=== PATIENT | female | born 1965 | race Caucasian/White ===

== ENCOUNTER → 2016-08-17 | Outpatient (CLI) | payer OTHER ==
--- NOTE | 2016-08-17 11:17 | US ---
EXAMINATION TYPE: US thyroid st tissue head/neck DATE OF EXAM: 08/17/2016 9:57 AM COMPARISON: 02/06/2015 CLINICAL HISTORY: Goiter E04.2. GLAND SIZE: Right Lobe: 5.5 x 2.3 x 2.0 cm Overall Parenchyma: heterogenous Left Lobe: 5.7 x 1.8 x 2.2 cm Overall Parenchyma: heterogeneous Isthmus Thickness: 0.5 cm NODULES RIGHT: # of nodules measured on right: 3 1. 0.8 X 0.6 x 0.4 cm hypoechoic mixed nodule at the upper medial pole with well-defined margins. This nodule is wider than tall and shows no intranodular vascularity. Prior size: 0.6 x 0.4 x 0.6 cm 2. 0.9 X 0.8 x 0.6 cm hypoechoic mixed nodule at the upper pole with well-defined margins; present w ith microcalcifications. This nodule is wider than tall and shows intranodular vascularity. Prior size: 0.8 x 0.5 x 0.8 cm 3. 0.8 X 1.0 x 0.6 cm hypoechoic mixed nodule at the lower pole with well-defined margins. This nod ule is wider than tall and shows intranodular vascularity. Prior size: 0.7 x 0.7 x 0.8 cm LEFT: # of nodules measured on left: 2 1. 1.4 X 1.1 x 0.8 cm isoechoic mixed nodule at the mid pole with well-defined margins. This nodul e is wider than tall and shows intranodular vascularity (prior FNA on this nodule per patient HX). Prior size: 1.2 x 0.9 x 1.2 cm 2. 0.5 x 0.4 x 0.4cm isoechoic mixed/calcified nodule at the mid pole with poorly defined margins. T his nodule is as wide as is tall and shows no intranodular vascularity. Prior size: not seen previously ISTHMUS: # of nodules measured in the isthmus: 2 1. 1.0 X 0.7 x 0.5 cm hypoechoic complex cystic nodule at the lower right isthmus pole with well-de fined margins. This nodule is wider than tall and shows no intranodular vascularity. Prior size: no prior seen 2. 0.7 x 0.6 x 0.6cm isoechoic, mixed nodule, at the lower right lateral isthmus pole with well defi tom margins. This nodule is wider than tall and shows intranodular vascularity. Not seen on prior US IMPRESSION: 1. Multinodular thyroid changes. There are a couple nodules as measured above. There is slight incremental increase in size compared to the isthmus nodule and the left mid pole nod ule. 2. Correlate for thyroiditis
== END | disposition home or self-care (01) ==
LOC: RADUSWWP 09:17
PROVIDERS: ATTEND Internal Medicine Endocrinology, Diabetes & Metabolism
DX: E04.2 Nontoxic multinodular goiter (principal)
CPT/HCPCS: 36415; 76536; 84439; 84443; 84481

== ENCOUNTER 2019-12-15 15:44 | Emergency (ER) | payer OTHER ==
[2019-12-15 15:50] VITALS: TEMP 98.4
[2019-12-15] MEDS ORDERED: SODIUM CHLORIDE 0.9% 2,000 ML IV STA (16:10)
--- NOTE | 2019-12-15 16:16 | ED ---
Nausea/Vomiting/Diarrhea HPI - General Chief complaint: Nausea/Vomiting/Diarrhea Stated complaint: Diarrhea, dehydration Time Seen by Provider: 12/15/19 15:54 Source: patient, RN notes reviewed, old records reviewed Mode of arrival: ambulatory Limitations: no limitations - History of Present Illness Initial comments: Patient is a pleasant 54-year-old female who presents emergency department today for evaluation for concern for diarrhea for the past 5 days after starting Augmentin for a double ear infection by her primary care doctor last week. Lavern ent states that she has been feeling generally very fatigued and weak. She states that she has not had a history of C. diff in the past. She denies any localized abdominal pain or vomiting at this time. - Related Data Home Medications Medication Instructions Recorded Confirmed Lisinopril [Zestril] 10 mg PO DAILY 07/07/15 07/07/15 Previous Rx's Medication Instructions Recorded Meclizine [Antivert] 25 mg PO TID #30 tab 07/07/15 Allergies Allergy/AdvReac Type Severity Reaction Status Date / Time No Known Allergies Allergy Verified 12/15/19 15:50 Review of Systems ROS Statement: Those systems with pertinent positive or pertinent negative responses have been documented in the HPI. ROS Other: All systems not noted in ROS Statement are negative. Past Medical History Additional Past Medical History / Comment(s): back pain History of Any Multi-Drug Resistant Organisms: None Reported Past Surgical History: No Surgical Hx Reported Past Psychological History: Anxiety, Depression Smoking Status: Current every day smoker Past Alcohol Use History: Occasional Past Drug Use History: None Reported General Exam Limitations: no limitations General appearance: alert, in no apparent distress Head exam: Present: atraumatic, normocephalic, normal inspection Eye exam: Present: normal appearance, PERRL, EOMI. Absent: scleral icterus, conjunctival injection, periorbital swelling ENT exam: Present: normal exam, mucous membranes moist Neck exam: Present: normal inspection. Absent: tenderness, meningismus, lymphadenopathy Respiratory exam: Present: normal lung sounds bilaterally. Absent: respiratory distress, wheezes, rales, rhonchi, stridor Cardiovascular Exam: Present: regular rate, normal rhythm, normal heart sounds. Absent: systolic murmur, diastolic murmur, rubs, gallop, clicks Extremities exam: Present: normal inspection, full ROM, normal capillary refill. Absent: tenderness, pedal edema, joint swelling, calf tenderness Back exam: Present: normal inspection Neurological exam: Present: alert, oriented X3, CN II-XII intact Course Vital Signs 12/15/19 12/15/19 15:48 17:32 Temperature 98.4 F Pulse Rate 92 76 Respiratory 20 18 Rate Blood Pressure 140/81 133/85 O2 Sat by Pulse 99 98 Oximetry Medical Decision Making - Medical Decision Making 34 rolled female presents return today with 5 days of diarrhea after taking antibiotic for an ear infection. Ears appear normal this time and no sign of infection. She was on Augmentin for the past week. At this time patient's has no abdominal tenderness. She complains of general fatigue and diarrhea. No bloody stools. She has not had any bowel movements while in the emergency department. Her abdomen is soft and nontender. Labs were unremarkable reviewed and unremarkable. She does feel better after 2 L bolus. Discussed likely component of dehydration if she had abdominal pain or fevers to return to the ER for evaluation. We'll discharge the Patient with a prescription to have C. diff testing on outpatient stool sample. - Lab Data Result diagrams: 12/15/19 16:49 12/15/19 16:49 Lab Results 12/15/19 12/15/19 12/15/19 Range/Units 16:49 16:49 16:49 WBC 8.2 (3.8-10.6) k/uL RBC 4.29 (3.80-5.40) m/uL Hgb 14.2 (11.4-16.0) gm/dL Hct 41.7 (34.0-46.0) % MCV 97.2 (80.0-100.0) fL MCH 33.0 (25.0-35.0) pg MCHC 33.9 (31.0-37.0) g/dL RDW 12.2 (11.5-15.5) % Plt Count 281 (150-450) k/uL Neutrophils % 51 % Lymphocytes % 39 % Monocytes % 5 % Eosinophils % 3 % Basophils % 0 % Neutrophils # 4.2 (1.3-7.7) k/uL Lymphocytes # 3.2 (1.0-4.8) k/uL Monocytes # 0.4 (0-1.0) k/uL Eosinophils # 0.2 (0-0.7) k/uL Basophils # 0.0 (0-0.2) k/uL Sodium 138 (137-145) mmol/L Potassium 4.2 (3.5-5.1) mmol/L Chloride 105 (98-107) mmol/L Carbon Dioxide 22 (22-30) mmol/L Anion Gap 11 mmol/L BUN 10 (7-17) mg/dL Creatinine 0.59 (0.52-1.04) mg/dL Est GFR (CKD-EPI)AfAm >90 (>60 ml/min/1.73 sqM) Est GFR (CKD-EPI)NonAf >90 (>60 ml/min/1.73 sqM) Glucose 75 (74-99) mg/dL Plasma Lactic Acid Jeff (0.7-2.0) mmol/L Calcium 9.5 (8.4-10.2) mg/dL Magnesium 2.2 (1.6-2.3) mg/dL Total Bilirubin 0.6 (0.2-1.3) mg/dL AST 30 (14-36) U/L ALT 27 (4-34) U/L Alkaline Phosphatase 68 (38-126) U/L Total Protein 7.0 (6.3-8.2) g/dL Albumin 4.7 (3.5-5.0) g/dL Amylase 41 (30-110) U/L Lipase 221 (23-300) U/L Urine Color Colorless Urine Appearance Clear (Clear) Urine pH 5.5 (5.0-8.0) Ur Specific [place] 1.002 (1.001-1.035) Urine Protein Negative (Negative) Urine Glucose (UA) Negative (Negative) Urine Ketones Negative (Negative) Urine Blood Negative (Negative) Urine Nitrite Negative (Negative) Urine Bilirubin Negative (Negative) Urine Urobilinogen <2.0 (<2.0) mg/dL Ur Leukocyte Esterase Negative (Negative) 12/15/19 Range/Units 16:49 WBC (3.8-10.6) k/uL RBC (3.80-5.40) m/uL Hgb (11.4-16.0) gm/dL Hct (34.0-46.0) % MCV (80.0-100.0) fL MCH (25.0-35.0) pg MCHC (31.0-37.0) g/dL RDW (11.5-15.5) % Plt Count (150-450) k/uL Neutrophils % % Lymphocytes % % Monocytes % % Eosinophils % % Basophils % % Neutrophils # (1.3-7.7) k/uL Lymphocytes # (1.0-4.8) k/uL Monocytes # (0-1.0) k/uL Eosinophils # (0-0.7) k/uL Basophils # (0-0.2) k/uL Sodium (137-145) mmol/L Potassium (3.5-5.1) mmol/L Chloride (98-107) mmol/L Carbon Dioxide (22-30) mmol/L Anion Gap mmol/L BUN (7-17) mg/dL Creatinine (0.52-1.04) mg/dL Est GFR (CKD-EPI)AfAm (>60 ml/min/1.73 sqM) Est GFR (CKD-EPI)NonAf (>60 ml/min/1.73 sqM) Glucose (74-99) mg/dL Plasma Lactic Acid Jeff 1.9 (0.7-2.0) mmol/L Calcium (8.4-10.2) mg/dL Magnesium (1.6-2.3) mg/dL Total Bilirubin (0.2-1.3) mg/dL AST (14-36) U/L ALT (4-34) U/L Alkaline Phosphatase (38-126) U/L Total Protein (6.3-8.2) g/dL Albumin (3.5-5.0) g/dL Amylase (30-110) U/L Lipase (23-300) U/L Urine Color Urine Appearance (Clear) Urine pH (5.0-8.0) Ur Specific [place] (1.001-1.035) Urine Protein (Negative) Urine Glucose (UA) (Negative) Urine Ketones (Negative) Urine Blood (Negative) Urine Nitrite (Negative) Urine Bilirubin (Negative) Urine Urobilinogen (<2.0) mg/dL Ur Leukocyte Esterase (Negative) Disposition Clinical Impression: Diarrhea Disposition: HOME SELF-CARE Condition: Good Instructions (If sedation given, give patient instructions): Acute Diarrhea (ED) Additional Instructions: Recommended stop using the antibiotic. Patient should increase fluid intake and have a bland diet. Return if there is any fever or worsening abdominal pain. Patient can return stool sample for further testing. Is patient prescribed a controlled substance at d/c from ED?: No Referrals: Kavita Mae MD [Primary Care Provider] - 1-2 days Time of Disposition: 18:25
[2019-12-15 16:59] LABS: Basophils % (A) 0 %; Eosinophils # (A) 0.2 k/uL (0-0.7); Eosinophils % (A) 3 %; HCT 41.7 % (34.0-46.0); HGB 14.2 gm/dL (11.4-16.0); Lymphocytes # (A) 3.2 k/uL (1.0-4.8); Lymphocytes % (A) 39 %; MCHC 33.9 g/dL (31.0-37.0); MCV 97.2 fL (80.0-100.0); Mean Platelet Volume 7.3; Monocytes # (A) 0.4 k/uL (0-1.0); Monocytes % (A) 5 %; Neutrophils # (A) 4.2 k/uL (1.3-7.7); Neutrophils % (A) 51 %; Platelet Count 281 k/uL (150-450); RBC 4.29 m/uL (3.80-5.40); RDW 12.2 % (11.5-15.5); WBC 8.2 k/uL (3.8-10.6)
[2019-12-15 17:07] LABS: Appearance,Urine Clear (Clear); Bilirubin,Urine Negative (Negative); Blood,Urine Negative (Negative); Color,Urine Colorless; Glucose,Urine (UA) Negative (Negative); Ketones,Urine Negative (Negative); Leukocyte Esterase,Urine Negative (Negative); Nitrite,Urine Negative (Negative); PH, Urine 5.5 (5.0-8.0); Protein,Urine Negative (Negative); Specific Gravity,Urine 1.002 (1.001-1.035); Urobilinogen,Urine <2.0 mg/dL (<2.0)
[2019-12-15 17:09] LABS: ALT 27 U/L (4-34); AST 30 U/L (14-36); African American GFR (CKD) >90 (>60 ml/min/1.73 sqM); Albumin 4.7 g/dL (3.5-5.0); Alkaline Phosphatase 68 U/L (38-126); Amylase 41 U/L (30-110); Anion Gap 11 mmol/L; Blood Urea Nitrogen 10 mg/dL (7-17); Calcium 9.5 mg/dL (8.4-10.2); Carbon Dioxide 22 mmol/L (22-30); Chloride 105 mmol/L (98-107); Glucose 75 mg/dL (74-99); Magnesium 2.2 mg/dL (1.6-2.3); Non-African American GFR(CKD) >90 (>60 ml/min/1.73 sqM); Potassium 4.2 mmol/L (3.5-5.1); Sodium 138 mmol/L (137-145); Total Bilirubin 0.6 mg/dL (0.2-1.3)
[2019-12-15 17:33] VITALS: BP 133/85; PULSE 76; RESP 18
== END 2019-12-15 18:54 | disposition home or self-care (01) ==
LOC: EC 15:44
DX: R19.7 Diarrhea, unspecified (principal); R53.83 Other fatigue; F17.200 Nicotine dependence, unspecified, uncomplicated; Z79.899 Other long term (current) drug therapy
CPT/HCPCS: 36415; 80053; 81003; 82150; 83605; 83690; 83735; 85025; 96360; 96361; 99284

== ENCOUNTER → 2020-07-29 | Outpatient (CLI) | payer OTHER ==
--- NOTE | 2020-07-29 08:04 | CT ---
EXAMINATION TYPE: CT iac wo con DATE OF EXAM: 07/29/2020 COMPARISON: None HISTORY: Left ear cholesteatoma CT DLP: 150mGycm Automated exposure control for dose reduction was used. FINDINGS: The external auditory canals are patent bilaterally. The cochlea and the semicircular canals are sym metric and unremarkable. Vestibular aqueduct and internal carotid canal appear unremarkable. Mucosal thickening involving both maxillary, sphenoid, and ethmoid air cells compatible with chronic sinusitis. There is hypoaeration of the left mastoid air cells areas of soft tissue attenuation withi n the remaining air cells compatible with chronic mastoiditis. There is abnormal soft tissue involving superior margin of the left middle air encasing the middle ea r ossicles. The scutum is poorly defined. Differential diagnosis would include a cholesteatoma or gra nulation tissue, finding measures approximately 5 x 4 x 3 extending into the region of the mastoid ai r cells. Could not exclude a degree of deformity of the malleus and incus on the left. Temporomandibu lar joints are maintained bilaterally. IMPRESSION: 1. Abnormal soft tissue attenuation involving the left middle ear within involvement of the middle ai r ossicles. Differential diagnosis would include cholesteatoma. Correlate clinically. Asymmetric morp hology of the left middle ear ossicles also noted may be on the basis of chronic inflammatory changes correlate for left-sided hearing loss. 2. Chronic sinusitis. 3. Chronic left mastoiditis.
== END | disposition home or self-care (01) ==
LOC: RADCTMAIN 07:34
PROVIDERS: ATTEND Otolaryngology Otolaryngology/Facial Plastic Surgery
DX: H70.12 Chronic mastoiditis, left ear (principal)
CPT/HCPCS: 70480

== ENCOUNTER 2020-12-27 05:15 | Emergency (ER) | payer OTHER ==
[2020-12-27 05:22] VITALS: PULSE 85; RESP 19; TEMP 98.3
[2020-12-27] MEDS ORDERED: HYDROcodone/APAP 5-325MG 1 EACH TAB PO STA (05:45)
[2020-12-27] MEDS ORDERED: IBUPROFEN 600 MG TAB PO STA (05:45)
--- NOTE | 2020-12-27 05:49 | ED ---
Lower Extremity Injury HPI - General Chief Complaint: Extremity Injury, Lower Stated Complaint: LT foot injury Time Seen by Provider: 12/27/20 05:29 Source: patient Mode of arrival: wheelchair - History of Present Illness MD Complaint: ankle injury -: hour(s) Injury: Ankle: Left Type of Injury: inversion Place: home Severity: moderate Improves With: nothing Worsens With: weight bearing Context: fall Associated Symptoms: swelling - Related Data Home Medications Medication Instructions Recorded Confirmed lisinopriL [Zestril] 10 mg PO DAILY 07/07/15 07/07/15 Previous Rx's Medication Instructions Recorded Meclizine [Antivert] 25 mg PO TID #30 tab 07/07/15 Ibuprofen [Motrin] 600 mg PO Q8HR PRN #20 tab 12/27/20 Allergies Allergy/AdvReac Type Severity Reaction Status Date / Time No Known Allergies Allergy Verified 12/27/20 05:22 Review of Systems ROS Statement: Those systems with pertinent positive or pertinent negative responses have been documented in the HPI. ROS Other: All systems not noted in ROS Statement are negative. Constitutional: Denies: weakness Musculoskeletal: Reports: as per HPI, joint swelling, arthralgia Skin: Denies: lesions Neurological: Denies: weakness, numbness Past Medical History Additional Past Medical History / Comment(s): back pain History of Any Multi-Drug Resistant Organisms: None Reported Past Surgical History: Ear Surgery Past Psychological History: Anxiety, Depression Smoking Status: Current every day smoker Past Alcohol Use History: Occasional Past Drug Use History: None Reported General Exam General appearance: alert, in no apparent distress Head exam: Present: atraumatic, normocephalic Left Hip exam: Present: normal inspection Upper Leg exam: Present: normal inspection Knee exam: Present: normal inspection, full ROM. Absent: tenderness Lower Leg exam: Present: normal inspection, full ROM. Absent: tenderness, swelling Ankle exam: Present: tenderness (Lateral malleolus), swelling. Absent: normal inspection, abrasion, laceration, ecchymosis, deformity, crepitus, dislocation Foot/Toe exam: Present: normal inspection, full ROM. Absent: tenderness, swelling, abrasion, laceration, ecchymosis, deformity, crepitus, dislocation, erythema, amputation, puncture wound, foreign body, calcaneal tenderness, tend erness at base of 5th metatarsal Neurovascular tendon exam: Present: no vascular compromise. Absent: pulse deficit, abnormal cap refill, motor deficit, sensory deficit, tendon deficit Neurological exam: Absent: motor sensory deficit Skin exam: Present: warm (Throughout left foot), dry, intact, normal color. Absent: rash Course Vital Signs 12/27/20 05:20 Temperature 98.3 F Pulse Rate 85 Respiratory 19 Rate Blood Pressure 124/80 O2 Sat by Pulse 98 Oximetry Disposition Clinical Impression: Sprain and strain of ankle Disposition: HOME SELF-CARE Condition: Good Instructions (If sedation given, give patient instructions): Ankle Sprain (ED) Prescriptions: Ibuprofen [Motrin] 600 mg PO Q8HR PRN #20 tab PRN Reason: Pain Is patient prescribed a controlled substance at d/c from ED?: No Referrals: Kavita Mae MD [Primary Care Provider] - 1-2 days
[2020-12-27] MEDS ORDERED: ACET/COD 300 MG/30 MG STARTER PACK 6 TAB BTL PO STA (06:30)
--- NOTE | 2020-12-27 06:49 | XR ---
EXAMINATION TYPE: XR ankle complete LT DATE OF EXAM: 12/27/2020 COMPARISON: NONE HISTORY: Ankle pain TECHNIQUE: 3 views FINDINGS: Ankle mortise is anatomic. There is soft tissue swelling over the lateral malleolus. I see no fracture nor dislocation. IMPRESSION: Soft tissue swelling. No fracture.
[2020-12-27 06:55] VITALS: BP 136/87
== END 2020-12-27 06:55 | disposition home or self-care (01) ==
LOC: EC 05:15
DX: S96.912A Strain of unspecified muscle and tendon at ankle and foot level, left foot, initial encounter (principal); F17.200 Nicotine dependence, unspecified, uncomplicated; F32.9 Major depressive disorder, single episode, unspecified; X50.9XXA Other and unspecified overexertion or strenuous movements or postures, initial encounter
CPT/HCPCS: 99283

== ENCOUNTER 2021-03-16 07:05 | Emergency (ER) | payer OTHER ==
[2021-03-16 07:11] VITALS: RESP 16; TEMP 97.9
[2021-03-16] MEDS ORDERED: SODIUM CHLORIDE 0.9% 1,000 ML IV STA (07:25)
[2021-03-16] MEDS ORDERED: DICYCLOMINE 10 MG/ML 2 ML AMP IM STA (07:26)
--- NOTE | 2021-03-16 07:45 | ED ---
General Adult HPI - General Chief complaint: Abdominal Pain Stated complaint: Abd Pain Time Seen by Provider: 03/16/21 07:13 Source: patient, RN notes reviewed Mode of arrival: ambulatory Limitations: no limitations - History of Present Illness Initial comments: Patient's a 55-year-old female presented to the emergency room today with a chief complaint of abdominal discomfort along with diarrhea over the last for 5 days. Patient does admit that approximately 2 weeks ago she was treated for bronchitis with antibiotics. She does not remember the name of the antibiotic. Patient states that some cramping over the last few days he's had increased di arrhea. Patient denies any signs of blood in the stool. She denies any nausea or vomiting. Patient states she's had similar symptoms in the past. Denies any history of C. diff. Patient denies any recent fever, chills, shortness of breath, chest pain, back pain, nausea or vomiting, numbness or tingling, headaches or visual changes, or any other complaints. - Related Data Home Medications Medication Instructions Recorded Confirmed FLUoxetine HCL [PROzac] 20 mg PO DAILY 03/16/21 03/16/21 Loperamide HCl [Imodium A-D] 2 mg PO ONCE PRN 03/16/21 03/16/21 Losartan [Cozaar] 50 mg PO DAILY 03/16/21 03/16/21 Previous Rx's Medication Instructions Recorded Dicyclomine [Bentyl] 20 mg PO QID #20 tablet 03/16/21 Allergies Allergy/AdvReac Type Severity Reaction Status Date / Time Penicillins AdvReac Nausea & Verified 03/16/21 08:22 Vomiting & Diarrhea Review of Systems ROS Statement: Those systems with pertinent positive or pertinent negative responses have been documented in the HPI. ROS Other: All systems not noted in ROS Statement are negative. Past Medical History Additional Past Medical History / Comment(s): back pain History of Any Multi-Drug Resistant Organisms: None Reported Past Surgical History: Ear Surgery Past Psychological History: Anxiety, Depression Smoking Status: Current every day smoker Past Alcohol Use History: Occasional Past Drug Use History: None Reported General Exam - General Exam Comments Initial Comments: General: The patient is awake and alert, in no distress, and does not appear acutely ill. Eye: extra-ocular movements are intact. No nystagmus. There is normal conjunctiva bilaterally. No signs of icterus. Ears, nose, mouth and throat: There are moist mucous membranes and no oral lesions. Neck: The neck is supple, there is no tenderness or JVD. Respiratory: respirations are non-labored, breath sounds are equal. No wheezes Gastrointestinal: Abdomen soft nontender. No rebound, guarding or CVA tenderness. Musculoskeletal: Normal ROM, no tenderness. Strength 5/5. Sensation intact. Neurological: A&O x 3. CN II-XII intact, There are no obvious motor or sensory deficits. Coordination appears grossly intact. Speech is normal. Skin: Skin is warm and dry and no rashes or lesions are noted. Psychiatric: Cooperative, appropriate mood & affect, normal judgment. Limitations: no limitations Course Vital Signs 03/16/21 07:09 Temperature 97.9 F Pulse Rate 76 Respiratory 16 Rate Blood Pressure 146/83 O2 Sat by Pulse 98 Oximetry Medical Decision Making - Medical Decision Making Patient reexamined at this time she is resting covered. Does admit to feeling better here in emergency room. Was unable to give a stool sample. Was discussed about concern if symptoms increase that she should have stool studies. At this time she is doing well and vitals are stable. Will be discharged home with prescription for Bentyl. Advised to follow family physician. Advised return if symptoms increase or worsen. Patient states understanding and is in agreement. - Lab Data Result diagrams: 03/16/21 08:13 03/16/21 08:13 Lab Results 03/16/21 03/16/21 03/16/21 Range/Units 08:13 08:13 08:13 WBC 7.1 (3.8-10.6) k/uL RBC 4.12 (3.80-5.40) m/uL Hgb 13.4 (11.4-16.0) gm/dL Hct 40.6 (34.0-46.0) % MCV 98.6 (80.0-100.0) fL MCH 32.6 (25.0-35.0) pg MCHC 33.0 (31.0-37.0) g/dL RDW 12.1 (11.5-15.5) % Plt Count 285 (150-450) k/uL MPV 7.5 Neutrophils % 67 % Lymphocytes % 22 % Monocytes % 6 % Eosinophils % 3 % Basophils % 0 % Neutrophils # 4.7 (1.3-7.7) k/uL Lymphocytes # 1.5 (1.0-4.8) k/uL Monocytes # 0.5 (0-1.0) k/uL Eosinophils # 0.2 (0-0.7) k/uL Basophils # 0.0 (0-0.2) k/uL Sodium (137-145) mmol/L Potassium (3.5-5.1) mmol/L Chloride (98-107) mmol/L Carbon Dioxide (22-30) mmol/L Anion Gap mmol/L BUN (7-17) mg/dL Creatinine (0.52-1.04) mg/dL Est GFR (CKD-EPI)AfAm (>60 ml/min/1.73 sqM) Est GFR (CKD-EPI)NonAf (>60 ml/min/1.73 sqM) Glucose (74-99) mg/dL Calcium (8.4-10.2) mg/dL Total Bilirubin (0.2-1.3) mg/dL AST (14-36) U/L ALT (4-34) U/L Alkaline Phosphatase (38-126) U/L Total Protein (6.3-8.2) g/dL Albumin (3.5-5.0) g/dL Lipase (23-300) U/L Urine Color Yellow Urine Appearance Cloudy H (Clear) Urine pH 5.5 (5.0-8.0) Ur Specific [place] 1.012 (1.001-1.035) Urine Protein Negative (Negative) Urine Glucose (UA) Negative (Negative) Urine Ketones Negative (Negative) Urine Blood Negative (Negative) Urine Nitrite Negative (Negative) Urine Bilirubin Negative (Negative) Urine Urobilinogen <2.0 (<2.0) mg/dL Ur Leukocyte Esterase Trace H (Negative) Urine RBC <1 (0-5) /hpf Urine WBC 2 (0-5) /hpf Ur Squamous Epith Cells 12 H (0-4) /hpf Urine Bacteria Rare H (None) /hpf Urine Mucus Occasional H (None) /hpf Urine HCG, Qual Not Detected (Not Detectd) 03/16/21 Range/Units 08:13 WBC (3.8-10.6) k/uL RBC (3.80-5.40) m/uL Hgb (11.4-16.0) gm/dL Hct (34.0-46.0) % MCV (80.0-100.0) fL MCH (25.0-35.0) pg MCHC (31.0-37.0) g/dL RDW (11.5-15.5) % Plt Count (150-450) k/uL MPV Neutrophils % % Lymphocytes % % Monocytes % % Eosinophils % % Basophils % % Neutrophils # (1.3-7.7) k/uL Lymphocytes # (1.0-4.8) k/uL Monocytes # (0-1.0) k/uL Eosinophils # (0-0.7) k/uL Basophils # (0-0.2) k/uL Sodium 137 (137-145) mmol/L Potassium 4.0 (3.5-5.1) mmol/L Chloride 108 H (98-107) mmol/L Carbon Dioxide 23 (22-30) mmol/L Anion Gap 6 mmol/L BUN 6 L (7-17) mg/dL Creatinine 0.54 (0.52-1.04) mg/dL Est GFR (CKD-EPI)AfAm >90 (>60 ml/min/1.73 sqM) Est GFR (CKD-EPI)NonAf >90 (>60 ml/min/1.73 sqM) Glucose 111 H (74-99) mg/dL Calcium 9.2 (8.4-10.2) mg/dL Total Bilirubin 0.7 (0.2-1.3) mg/dL AST 38 H (14-36) U/L ALT 30 (4-34) U/L Alkaline Phosphatase 85 (38-126) U/L Total Protein 6.1 L (6.3-8.2) g/dL Albumin 3.8 (3.5-5.0) g/dL Lipase 61 (23-300) U/L Urine Color Urine Appearance (Clear) Urine pH (5.0-8.0) Ur Specific [place] (1.001-1.035) Urine Protein (Negative) Urine Glucose (UA) (Negative) Urine Ketones (Negative) Urine Blood (Negative) Urine Nitrite (Negative) Urine Bilirubin (Negative) Urine Urobilinogen (<2.0) mg/dL Ur Leukocyte Esterase (Negative) Urine RBC (0-5) /hpf Urine WBC (0-5) /hpf Ur Squamous Epith Cells (0-4) /hpf Urine Bacteria (None) /hpf Urine Mucus (None) /hpf Urine HCG, Qual (Not Detectd) Disposition Clinical Impression: Abdominal pain, Acute diarrhea Disposition: HOME SELF-CARE Condition: Good Instructions (If sedation given, give patient instructions): Abdominal Pain (ED) Additional Instructions: Please use medication as discussed. Please follow-up with family doctor in the next 2 days of symptoms have not improved. Please return to emergency room if the symptoms increase or worsen or for any other concerns. Prescriptions: Dicyclomine [Bentyl] 20 mg PO QID #20 tablet Is patient prescribed a controlled substance at d/c from ED?: No Referrals: Kavita Mae MD [Primary Care Provider] - 1-2 days Time of Disposition: 10:20
[2021-03-16 08:28] LABS: Basophils % (A) 0 %; Eosinophils # (A) 0.2 k/uL (0-0.7); Eosinophils % (A) 3 %; HCT 40.6 % (34.0-46.0); HGB 13.4 gm/dL (11.4-16.0); Lymphocytes # (A) 1.5 k/uL (1.0-4.8); Lymphocytes % (A) 22 %; MCH 32.6 pg (25.0-35.0); MCV 98.6 fL (80.0-100.0); Mean Platelet Volume 7.5; Monocytes # (A) 0.5 k/uL (0-1.0); Monocytes % (A) 6 %; Neutrophils # (A) 4.7 k/uL (1.3-7.7); Neutrophils % (A) 67 %; Platelet Count 285 k/uL (150-450); RBC 4.12 m/uL (3.80-5.40); RDW 12.1 % (11.5-15.5); WBC 7.1 k/uL (3.8-10.6)
[2021-03-16 08:50] LABS: Appearance,Urine Cloudy (Clear); Bacteria,Urine Rare /hpf; Bilirubin,Urine Negative (Negative); Blood,Urine Negative (Negative); Color,Urine Yellow; Glucose,Urine (UA) Negative (Negative); Ketones,Urine Negative (Negative); Leukocyte Esterase,Urine Trace (Negative); Mucus,Urine Occasional /hpf; Nitrite,Urine Negative (Negative); PH, Urine 5.5 (5.0-8.0); Protein,Urine Negative (Negative); RBC,Urine <1 /hpf (0-5); Specific Gravity,Urine 1.012 (1.001-1.035); Squamous Epithelial Cell,Urine 12 /hpf (0-4); Urobilinogen,Urine <2.0 mg/dL (<2.0); WBC,Urine 2 /hpf (0-5)
[2021-03-16 08:51] LABS: ALT 30 U/L (4-34); AST 38 U/L (14-36); African American GFR (CKD) >90 (>60 ml/min/1.73 sqM); Albumin 3.8 g/dL (3.5-5.0); Alkaline Phosphatase 85 U/L (38-126); Anion Gap 6 mmol/L; Blood Urea Nitrogen 6 mg/dL (7-17); Calcium 9.2 mg/dL (8.4-10.2); Carbon Dioxide 23 mmol/L (22-30); Chloride 108 mmol/L (98-107); Glucose 111 mg/dL (74-99); Lipase 61 U/L (23-300); Non-African American GFR(CKD) >90 (>60 ml/min/1.73 sqM); Sodium 137 mmol/L (137-145); Total Bilirubin 0.7 mg/dL (0.2-1.3); Total Protein 6.1 g/dL (6.3-8.2)
[2021-03-16 10:34] VITALS: BP 144/89; PULSE 68
== END 2021-03-16 10:34 | disposition home or self-care (01) ==
LOC: EC 07:05
DX: R19.7 Diarrhea, unspecified (principal); F41.9 Anxiety disorder, unspecified; F32.9 Major depressive disorder, single episode, unspecified; F17.200 Nicotine dependence, unspecified, uncomplicated; Z72.89 Other problems related to lifestyle
CPT/HCPCS: 36415; 80053; 83690; 85025; 81001; 81025; 87324; 87045; 87046; 99284; 96360; 96372; J0500

== ENCOUNTER → 2022-10-26 | Outpatient (CLI) | payer OTHER ==
--- NOTE | 2022-10-27 08:21 | MR ---
EXAMINATION TYPE: MR lumbar spine wo con DATE OF EXAM: 10/26/2022 8:10 AM COMPARISON: 01/28/2014 HISTORY: Lower back pain, LLE radiculopathy. Multiplanar, MultiSpin echo imaging of the lumbar spine was performed. L1-L2: Mild disc desiccation with posterior disc bulge. Mild effacement ventral thecal sac. No eviden ce for herniation or protrusion. No central stenosis or foraminal encroachment. L2-L3: Mild disc desiccation with posterior disc bulge which effaces the ventral thecal sac. Hypertro phy of the ligamentum flavum as well as facet joint arthropathy result in borderline to mild central stenosis. Mild bilateral neural foraminal encroachment. L3-L4: Mild disc desiccation with posterior disc bulge which effaces the ventral thecal sac. Hypertro phy of the ligamentum flavum as well as facet joint arthropathy result in borderline to mild central stenosis. Mild bilateral neural foraminal encroachment. L4-L5: Moderate to severe disc desiccation with moderate posterior disc bulge. Hypertrophy ligamentum flavum and hypertrophic change of the facet joints result in moderate central stenosis. Bilateral ne ural foraminal encroachment. L5-S1: Moderate disc desiccation. Previously noted right paracentral disc herniation appears to have resolved. There is posterior disc bulge noted with annular tear. Hard disc is seen paracentrally and to the left resulting in left lateral recess stenosis and left foraminal encroachment. Lumbar segments are intact. No paraspinal masses are identified. Conus medullaris has a normal appe arance. Small incidental left renal cyst. IMPRESSION: 1. Multilevel degenerative disc disease with multilevel central stenosis and foraminal encroachment w ith progression since prior examination.
== END | disposition home or self-care (01) ==
LOC: RADMRIMAIN 07:18
PROVIDERS: ATTEND Nurse Practitioner Family
DX: M47.26 Other spondylosis with radiculopathy, lumbar region (principal); M51.16 Intervertebral disc disorders with radiculopathy, lumbar region; M99.73 Connective tissue and disc stenosis of intervertebral foramina of lumbar region
CPT/HCPCS: 72148

== ENCOUNTER → 2022-11-03 | Outpatient (CLI) | payer OTHER ==
[2022-11-03 09:43] VITALS: BP 122/79; PULSE 83; RESP 18; TEMP 98.2
--- NOTE | 2022-11-03 14:24 | P.PAINPG ---
PQRS Measure Charge Sheet Comment: HISTORY OF PRESENT ILLNESS: 57 yr old female as a referral from [facility] presents today w severe and chronic LBP x 15 yrs secondary to DDD, spondylosis and facet arthropathy without myelopathy for evaluation. Pt states pain level is provoked at 9/10 in intensity, constant, localized in the lower lumbar spine, sharp in character w shooting pain towards the LLE and foot. Pain is provoked by lifting, bending, activity. Pain is alleviated by heat, medications (Naproxen, Ibu), topical, PT in 2017, massages by her best friend at home as needed, hot baths, repositioning and rest. PMH: HTN, MDD/ Anxiety PSH: Ear Surgery SH: Daily tobacco use, Occasional ETOH use, No illicit drug use FH: Noncontributory All: PCN Meds: See list REVIEW OF ORGAN SYSTEMS: CONSTITUTIONAL: No fevers or chills. No recent weight loss. NEUROLOGICAL: + numbness and tingling along the distal extremities. No seizure disorders or headaches. MUSCULOSKELETAL: + pain PSYCHIATRIC: Denies current depression or suicidal thoughts. Physical Examinations : Constitutional : Cooperative , not in acute distress . Neurologic : Cranial nerve II to XII intact. No focal neurological deficits. Psychiatric : alert & oriented x 3. Matching mood & appropriate affect. Judgment & insight intact. Musculoskeletal : Cervical Spine Motor strength in the deltoid and biceps: Normal right side. Normal Left side Motor strength biceps and the wrist extensors: Normal right side . Normal left side Motor strength in the triceps muscle: Normal right side. Normal left side Deep tendon reflexes: Normal at the biceps. Normal at Brachioradialis. Normal at triceps Vertebral body tenderness to deep palpation over Cervical facet loading test: positive bilaterally Spurling test: positive bilaterally Neck distraction test: positive bilaterally Mariel sign: positive bilaterally Lumbar spine Motor strength lower extremities ,thigh and legs 5/5 Right side , 5/5 Left side Deep tendon reflexes : Normal Knee Jerk. Normal Ankle Jerk Vertebral body tenderness over L5 Savage Test positive Lumbar facet Loading Test: positive Right / positive Left Range of motion of the lumbar spine Flexion 30 degrees, extension 10 degrees Straight Leg Raise test: Left/ Right positive at degree Tae test: positive right / positive left. Severe tenderness over the Sacroiliac joint on the Right / Left sides Gaenslen test: positive bilaterally Seated flexion test: positive b ilaterally. Sacral spine : Severe tenderness over the Sacroiliac joint: right side / left side Range of motion: Flexion of the lumbar spine <60 degrees Range of motion: Extension of the lumbar spine <20 degrees Gaenslen's Test positive Amadou's Test positive Tae test: positive right side / left side Thigh Thrust Test Sacral Thrust Test Imaging: MRI noncontrast of the lumbar spine from 10/26/22 reviewed Assessment/ Plan : Lumbar disc bulges, Lumbar DDD Recommendation of PT x 6 wks re: M51.36. May follow up in 6 wks for a re evaluation. All questions answered. I have spent greater than 30 minutes on patient care today. Dr Knight was available by phone for the evaluation of this patient. The time was used to review the medical records including relevant urine studies and Prescription history (MAPs), review of the available imaging, evaluation and examination of the patient, coordination of care with the medical staff and if applicable referring physicians, as well as creation of the medical record PQRS Narrative: Smoking Status Current every day smoker Home Medications: Ambulatory Orders Dicyclomine [Bentyl] 20 mg PO QID #20 tablet 03/16/21 FLUoxetine HCL [PROzac] 20 mg PO DAILY 03/16/21 Loperamide HCl [Imodium A-D] 2 mg PO ONCE PRN 03/16/21 Losartan [Cozaar] 50 mg PO DAILY 03/16/21 Controlled Substance Measures - Controlled Substance Measures Is patient prescribed a controlled substance at discharge?: No
== END ==
LOC: PNWHC3 08:29
PROVIDERS: ATTEND Specialist
DX: M47.26 Other spondylosis with radiculopathy, lumbar region (principal); M51.16 Intervertebral disc disorders with radiculopathy, lumbar region; F17.200 Nicotine dependence, unspecified, uncomplicated; I10 Essential (primary) hypertension; F32.9 Major depressive disorder, single episode, unspecified; F41.9 Anxiety disorder, unspecified; Z88.0 Allergy status to penicillin
CPT/HCPCS: 99211

== ENCOUNTER 2022-12-10 05:54 | Emergency (ER) | payer OTHER ==
[2022-12-10 05:59] VITALS: BP 120/70; PULSE 87; RESP 16; TEMP 98.7
[2022-12-10] MEDS ORDERED: DEXAMETHASONE SOD PHOSPHATE 10 MG/ML 1 ML VIAL IM STA (06:13)
[2022-12-10] MEDS ORDERED: ACET/COD 300 MG/30 MG STARTER PACK 6 TAB BTL PO STA (06:17)
--- NOTE | 2022-12-10 06:26 | ED ---
Back Pain HPI - General Chief Complaint: Back Pain/Injury Stated Complaint: Left side pain Time Seen by Provider: 12/10/22 06:03 Source: patient, RN notes reviewed, old records reviewed Limitations: no limitations - History of Present Illness Initial Comments: 57-year-old female presents to the emergency room ambulatory with complaints of low back pain radiating down her left leg. has a history of the same and recently had an MRI. She is scheduled to see orthopedics next week for follow- up after having her MRI. has had relief with steroids in the past. Has been taking Naprosyn and Flexeril at home with no relief. Having difficulty sleeping at night due to pain. Denies any trauma, no fevers, no bowel or bladder incontinence, no history of cancer. MD Complaint: back pain -: week(s) Similar Symptoms Previously: Yes Severity scale (1-10): 9 Consistency: constant Improves With: none Associated Symptoms: denies other symptoms Treatments Prior to Arrival: NSAIDS (Naproxen), other (flexeril) - Related Data Home Medications Medication Instructions Recorded Confirmed FLUoxetine HCL [PROzac] 20 mg PO DAILY 03/16/21 03/16/21 Loperamide HCl [Imodium A-D] 2 mg PO ONCE PRN 03/16/21 03/16/21 Losartan [Cozaar] 50 mg PO DAILY 03/16/21 03/16/21 Previous Rx's Medication Instructions Recorded Dicyclomine [Bentyl] 20 mg PO QID #20 tablet 03/16/21 Lidocaine 5% Patch [Lidoderm] 1 patch TOPICAL DAILY 14 Days #14 12/10/22 patch predniSONE [Deltasone] 20 mg PO BID 5 Days #10 tab 12/10/22 Allergies Allergy/AdvReac Type Severity Reaction Status Date / Time Penicillins AdvReac Nausea & Verified 03/16/21 08:22 Vomiting & Diarrhea Review of Systems ROS Statement: Those systems with pertinent positive or pertinent negative responses have been documented in the HPI. ROS Other: All systems not noted in ROS Statement are negative. Past Medical History Additional Past Medical History / Comment(s): back pain History of Any Multi-Drug Resistant Organisms: None Reported Past Surgical History: Ear Surgery Past Psychological History: Anxiety, Depression Smoking Status: Current every day smoker Past Alcohol Use History: Occasional Past Drug Use History: None Reported General Exam Limitations: no limitations General appearance: alert Head exam: Present: atraumatic Eye exam: Present: normal appearance Neck exam: Absent: meningismus Respiratory exam: Absent: respiratory distress, accessory muscle use Cardiovascular Exam: Present: regular rate Extremities exam: Present: normal capillary refill. Absent: pedal edema Back exam: Present: tenderness (left sciatic notch). Absent: CVA tenderness (R), CVA tenderness (L), paraspinal tenderness, vertebral tenderness, rash noted Expanded Back exam: Absent: saddle anesthesia Back exam: Sciatic Notch Tenderness: Left Neurological exam: Present: alert, oriented X3, normal gait Psychiatric exam: Present: normal affect, normal mood Skin exam: Present: warm, dry, normal color. Absent: cyanosis, diaphoretic, petechiae, pallor Course Vital Signs 12/10/22 05:55 Temperature 98.7 F Pulse Rate 87 Respiratory 16 Rate Blood Pressure 120/70 O2 Sat by Pulse 100 Oximetry Medical Decision Making - Medical Decision Making Was pt. sent in by a medical professional or institution (, PA, ICU REGISTERED NURSE, urgent care, hospital, or [place] health care facility...) When possible be specific @ -No Did you speak to anyone other than the patient for history (EMS, parent, family, police, friend...)? What history was obtained from this source @ -No Did you review nursing and triage notes (agree or disagree)? Why? @ -I reviewed and agree with nursing and triage notes Were old charts reviewed (outside hosp., previous admission, EMS record, old EKG, old radiological studies, urgent care reports/EKG's, [place] health care facility records)? Report findings @ -yes MRI report 10/26/22 Differential Diagnosis (chest pain, altered mental status, abdominal pain women, abdominal pain men, vaginal bleeding, weakness, fever, dyspnea, syncope, headache, dizziness, GI bleed, back pain, seizure, CVA, palpatations, mental health, musculoskeletal)? @ -Differential Back Pain: Strain, zoster, cauda equina syndrome, epidural abscess, vertebral osteomyelitis, discitis, fracture, subluxation, disc herniation, DJD, spinal stenosis, dissection, AAA, pancreatitis, peptic ulcer disease, pyelonephritis, kidney stone, this is not meant to be an all-inclusive list. EKG interpreted by me (3pts min.). @ -n/a X-rays interpreted by me (1pt min.). @ -None done CT interpreted by me (1pt min.). @ -None done U/S interpreted by me (1pt. min.). @ -None done What testing was considered but not performed or refused? (CT, X-rays, U/S, labs)? Why? @ -X-ray was considered however patient had an MRI in October, denies any trauma or new symptoms. What meds were considered but not given or refused? Why? @ -None Did you discuss the management of the patient with other professionals (professionals i.e. DrJelena, PA, ICU REGISTERED NURSE, lab, RT, psych nurse, director social, quality director, teacher, project control officer, rifle case repairer)? Give summary @ -No Was smoking cessation discussed for >3mins.? @ -No Was critical care preformed (if so, how long)? @ -No Were there social determinants of health that impacted care today? How? (Homelessness, low income, unemployed, alcoholism, drug addiction, transportation, low edu. Level, literacy, decrease access to med. care, prison, rehab)? @ -No Was there de-escalation of care discussed even if they declined (Discuss DNR or withdrawal of care, Hospice)? DNR status @ -No What co-morbidities impacted this encounter? (DM, HTN, Smoking, COPD, CAD, Cancer, CVA, ARF, Chemo, Hep., AIDS, mental health diagnosis, sleep apnea, morbid obesity)? @ -Chronic low back pain with degenerative disc disease, anxiety, depression, smoker Was patient admitted / discharged? Hospital course, mention meds given and route, prescriptions, significant lab abnormalities, going to OR and other pertinent info. @ -Discharged 57-year-old female presents to the emergency room ambulatory with complaints of low back pain radiating down her left leg. has a history of the same and recently had an MRI. She is scheduled to see orthopedics next week for follow- up after having her MRI. has had relief with steroids in the past. Has been taking Naprosyn and Flexeril at home with no relief. Having difficulty sleeping at night due to pain. Denies any trauma, no fevers, no bowel or bladder incontinence, no history of cancer. Report of MRI completed on 10/26/2022 of lumbar spine without contrast by orthopedics Sav[facility] Norman ICU REGISTERED NURSE was reviewed. Impression was multilevel degenerative disc disease with multilevel central stenosis and foraminal encroachment with progression since prior exam in January 2014. On physical exam patient is able to ambulate in the room with a steady gait. Good flexion. No saddle anesthesia. She describes the pain as shooting down left leg and left lateral side of her foot. States has had improvement after steroids in the past. Patient was given a shot of Decadron and a Lidoderm patch. She was prescribed a 5 day course of prednisone. Directed not to take her Naprosyn while taking the prednisone. She is instructed to follow-up with orthopedics as scheduled on December 15. Return to the emergency room with a new concerning symptoms. She is agreeable to this plan of care. Discharged home with family ambulatory. Case discussed with Dr. Cowart. Undiagnosed new problem with uncertain prognosis? @ -No Drug Therapy requiring intensive monitoring for toxicity (Heparin, Nitro, Insulin, Cardizem)? @ -No Were any procedures done? @ -No Diagnosis/symptom? @ -Chronic low back pain with left-sided sciatica Acute, or Chronic, or Acute on Chronic? @ -Acute on chronic Uncomplicated (without systemic symptoms) or Complicated (systemic symptoms)? @ -Uncomplicated Side effects of treatment? @ -No Exacerbation, Progression, or Severe Exacerbation? @ -No Poses a threat to life or bodily function? How? (Chest pain, USA, VT, pneumonia, PE, COPD, DKA, ARF, appy, cholecystitis, CVA, Diverticulitis, Homicidal, Suicidal, threat to staff... and all critical care pts) @ -No Disposition Clinical Impression: Chronic low back pain with left-sided sciatica Disposition: HOME SELF-CARE Condition: Good Instructions (If sedation given, give patient instructions): Sciatica (ED), Chronic Back Pain (DC), Lower Back Exercises (ED) Additional Instructions: Take steroids as prescribed and do not take Naprosyn while taking steroids. You can continue the Flexeril and use heat and/or topical pain relievers. You can use Tylenol #3 to help you sleep at night but do not use muscle relaxers and Tylenol [address] or operate heavy machinery when taking these medications. Follow-up with orthopedics as scheduled next week. Return to the emergency room with a number concerning symptoms. Prescriptions: predniSONE [Deltasone] 20 mg PO BID 5 Days #10 tab Lidocaine 5% Patch [Lidoderm] 1 patch TOPICAL DAILY 14 Days #14 patch Is patient prescribed a controlled substance at d/c from ED?: No Referrals: Bibiana Márquez MD [Primary Care Provider] - 1-2 days Time of Disposition: 06:23
[2022-12-10] MEDS ORDERED: LIDOCAINE 5% PATCH TOPICAL SCH (09:00)
== END 2022-12-10 06:36 | disposition home or self-care (01) ==
LOC: EC 05:54
DX: G89.29 Other chronic pain (principal); M54.32 Sciatica, left side; F17.200 Nicotine dependence, unspecified, uncomplicated; Z86.59 Personal history of other mental and behavioral disorders; Z88.0 Allergy status to penicillin
CPT/HCPCS: 99283; 96372; J1100

== ENCOUNTER 2023-04-13 06:39 | Day surgery (SDC) | payer OTHER ==
[2023-04-13] MEDS ORDERED: LACTATED RINGERS 1,000 ML IV SCH (06:50)
[2023-04-13] MEDS ORDERED: methylPREDNISolone ACETATE 80 MG/ML 1 ML VIAL ONE (07:18)
[2023-04-13] MEDS ORDERED: IOPAMIDOL M200 10 ML VIAL ONE (07:18)
--- NOTE | 2023-04-13 07:24 | P.PCN ---
Date of Procedure: 04/13/23 Procedure(s) Performed: PREOPERATIVE DIAGNOSIS: 1- Lumbar Degenerative Disc Diseases 2-Lumbar spondylosis with Facet arthropathy without myelopathy. POSTOPERATIVE DIAGNOSIS: 1-lumbar degenerative disc disease. 2-lumbar spondylosis with facet arthropathy without myelopathy. PROCEDURE 1. Lumbar epidural steroid injection under fluoroscopic guidance at the L4-5 level. (Fluoroscopy imaging was available in radiology department) 2. Lumbar epidurogram. ANESTHESIA: Lidocaine 1% 3 and then only. EBL: Minimal PROCEDURE INDICATION: The patient with low back pain and radiculitis symptoms unresponsive to conservative treatment. Fluoroscopy was used to optimize visualization of the needle placement and to maximize safety. PROCEDURE DESCRIPTION / TECHNIQUE: The patient was seen and identified in the preoperative area. Risks, benefits, complications including but not limited to infections ,bleeding ,allergic reaction to the medications ,nerve damage and not complete pain releife , and alternatives were discussed with the patient. The patient agreed to proceed with the procedure and signed the consent, and vital signs were stable. Patient was taken to the OR and time out was completed. The patient was placed in the prone position on procedure table and a pillow was placed under the abdomen to reduce lumbar lordosis. The lumbosacral area was prepped and draped in the usual sterile fashion.ere closely monitored during the procedure. Vital signs was monitered during the entire procedure. Using anterior-posterior fluoroscopy, the L4-5 interlaminar space was identified and the skin over this site was marked and then infiltrated with 1% lidocaine subcutaneously. Subsequently, a 20-gauge Tuohy epidural needle was inserted and advanced toward the epidural space using the ``Loss of resistance technique and guided by AP and lateral fluoroscopy. The correct needle position in the epidural space was verified with the injection of 2 mL of the water soluble contrast dye Isovue 200 contrast and observing an excellent epidurogram with the epidural spread of the dye, after negative aspiration for blood and CSF and in the absence of paresthesias. Again after negative aspiration, a 6 ml mixture containing 80 mg of Depo-medrol ( Preservetive Free ), and 2 ml of preservative free Normal Saline, and 2 ml of preservative free lidocaine 1% solution was injected and a washout of epidurogram was seen. Needle was withdrawn intact, skin was cleansed, and bandages were applied. COMPLICATIONS: None DISPOSITION / PLANS: The patient was placed in a supine position and transferred to the recovery area in a stable condition for observation. There was no evid ence of lower extremity motor or sensory deficit after the procedure. Patient was discharged from the recovery room after meeting discharge criteria. Home discharge instructions were given to the patient by the staff. The patient was reexamined prior to discharge. The patient will schedule a follow up in the clinic in 2-4 weeks.
[2023-04-13 07:31] VITALS: BP 121/74; PULSE 92; RESP 16; TEMP 98.2
--- NOTE | 2023-04-13 07:46 | FL ---
Fluoroscopy INDICATION: Pain FINDINGS: Fluoroscopy time: 1 seconds. Total dose area product (DAP) in uGy*m?, mGy*cm? (or similar): 0.18024 Images obtained: 3. IMPRESSION: 1. Documentation of fluoroscopy.
== END 2023-04-13 07:42 | disposition home or self-care (01) ==
LOC: ORPAIN 06:39
PROVIDERS: ATTEND Specialist
DX: M51.16 Intervertebral disc disorders with radiculopathy, lumbar region (principal); M47.26 Other spondylosis with radiculopathy, lumbar region; Z88.0 Allergy status to penicillin
CPT/HCPCS: 62323; J1040; Q9966

== ENCOUNTER → 2023-05-08 | Outpatient (CLI) | payer OTHER ==
[2023-05-08 09:18] VITALS: BP 130/88; PULSE 77; RESP 15; TEMP 98.4
--- NOTE | 2023-05-08 12:48 | P.PAINPG ---
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 Pt states she experienced 50% pain relief x 3 wks s/p procedure. Pt states pain level is provoked at 4/10 in intensity, constant, predominantly axial, localized in the lower lumbar spine, sharp in character w occasional shooting pain towards the BLEs. Pain is provoked by lifting, bending, activity. Pain is alleviated by PT x 6 wks in Feb 2023, heat, medications, topical, massages by her best friend at home as needed, hot baths, repositioning and rest. Oswestry axial pain score of 21. Interventional procedures include FELY L4-L5 x1 Medications include Tramadol, Ibu, Neurontin, Cymbalta REVIEW OF ORGAN SYSTEMS: CONSTITUTIONAL: No fevers or chills. No recent weight loss. NEUROLOGICAL: + numbness and tingling along the distal extremities. No seizure disorders or headaches. MUSCULOSKELETAL: + pain PSYCHIATRIC: Denies current depression or suicidal thoughts. Physical Examinations : Constitutional : Cooperative , not in acute distress . Neurologic : Cranial nerve II to XII intact. No focal neurological deficits. Psychiatric : alert & oriented x 3. Matching mood & appropriate affect. Judgment & insight intact. Musculoskeletal : Cervical Spine Motor strength in the deltoid and biceps: Normal right side. Normal Left side Motor strength biceps and the wrist extensors: Normal right side . Normal left side Motor strength in the triceps muscle: Normal right side. Normal left side Deep tendon reflexes: Normal at the biceps. Normal at Brachioradialis. Normal at triceps Vertebral body tenderness to deep palpation over Cervical facet loading test: positive bilaterally Spurling test: positive bilaterally Neck distraction test: positive bilaterally Mariel sign: positive bilaterally Lumbar spine Motor strength lower extremities ,thigh and legs 5/5 Right side , 5/5 Left side Deep tendon reflexes : Normal Knee Jerk. Normal Ankle Jerk Vertebral body tenderness over L4 Savage Test positive Lumbar facet Loading Test: positive Right / positive Left Range of motion of the lumbar spine Flexion 30 degrees, extension 10 degrees Straight Leg Raise test: Left/ Right positive at 35 degrees Tae test: positive right / positive left. Severe tenderness over the Sacroiliac joint on the Right / Left sides Gaenslen test: positive bilaterally Seated flexion test: positive bilaterally. Sacral spine : Severe tenderness over the Sacroiliac joint: right side / left side Range of motion: Flexion of the lumbar spine <60 degrees Range of motion: Extension of the lumbar spine <20 degrees Gaenslen's Test positive Amadou's Test positive Tae test: positive right side / left side Thigh Thrust Test Sacral Thrust Test Imaging: MRI noncontrast of the lumbar spine from 10/26/22 reviewed Assessment/ Plan : Lumbar disc bulges, Lumbar DDD Recommendation of FELY L4-L5 #2. May need a series of injections for optimal pain relief. Risks, benefits of procedure discussed and patient verbalized understanding. Protocol for discontinuation/continuation of medications surrounding procedure discussed. All questions answered. I have spent greater than 30 minutes on patient care today. Dr Knight was available by phone for the evaluation of this patient. The time was used to review the medical records including relevant urine studies and Prescription history (MAPs), review of the available imaging, evaluation and examination of the patient, coordination of care with the medical staff and if applicable referring physicians, as well as creation of the medical record PQRS Narrative: Smoking Status Current every day smoker Hx Alcohol Use (MH) No Home Medications: Ambulatory Orders Dicyclomine [Bentyl] 20 mg PO QID #20 tablet 03/16/21 FLUoxetine HCL [PROzac] 20 mg PO DAILY 03/16/21 Loperamide HCl [Imodium A-D] 2 mg PO ONCE PRN 03/16/21 Losartan [Cozaar] 50 mg PO DAILY 03/16/21 L.idocaine 5% Patch [Lidoderm] 1 patch TOPICAL DAILY 14 Days #14 patch 12/10/22 Ketorolac [Toradol] 10 mg PO Q8HR #15 tab 12/23/22 Controlled Substance Measures - Controlled Substance Measures Is patient prescribed a controlled substance at discharge?: No
== END ==
LOC: PNWHC3 08:12
PROVIDERS: ATTEND Specialist
DX: M51.36 Other intervertebral disc degeneration, lumbar region (principal); F17.200 Nicotine dependence, unspecified, uncomplicated; Z88.0 Allergy status to penicillin
CPT/HCPCS: 99211

== ENCOUNTER 2023-05-25 07:21 | Day surgery (SDC) | payer OTHER ==
[2023-05-23 14:28] VITALS: BMI 23.7
[~2023-05-25 07:21] MED LIST: LACTATED RINGERS 1,000 ML IV SCH
[2023-05-25 07:51] VITALS: RESP 16; TEMP 97.7
[2023-05-25] MEDS ORDERED: methylPREDNISolone ACETATE 80 MG/ML 1 ML VIAL ONE (08:03)
[2023-05-25] MEDS ORDERED: IOPAMIDOL M200 10 ML VIAL ONE (08:03)
[2023-05-25] MEDS ORDERED: ROPIVACAINE 5MG/ML 20ML VIAL ONE (08:03)
--- NOTE | 2023-05-25 08:27 | P.PCN ---
Description of Procedure: PREOPERATIVE DIAGNOSIS: 1- Lumbar Degenerative Disc Diseases 2-Lumbar spondylosis with Facet arthropathy without myelopathy. 3-lumbar spinal stenosis POSTOPERATIVE DIAGNOSIS: 1-lumbar degenerative disc disease. 2-lumbar spondylosis with facet arthropathy without myelopathy. 3-lumbar spinal stenosis. PROCEDURE Injection of radial contrast material into L45 interspace, interpretation of epidurogram, injection of steroid at L4 5 epidural space under fluoroscopic guidance. ANESTHESIA: Lidocaine 1% subcutaneously. In OR continuous pulse ox, EKG, blood pressure and volleyball complication was maintained with the patient. EBL: Minimal PROCEDURE INDICATION: Before the procedure were discussed with the patient deta iled procedure, alternatives, complications including infection, bleeding, nerve damage, paralysis all of which could be permanent. Patient understands and all questions were answered. PROCEDURE DESCRIPTION : After getting consent, patient in OR in prone position. Back was prepped with chlorhexidine and draped in sterile fashion. After injecting 10 mL of 1% lidocaine subcutaneously, a 20-gauge Tuohy needle was introduced at L4 5 interspace with loss of resistance technique using a syringe filled with air. Negative CSF, negative blood, negative paresthesia. Needle position was confirmed with AP and lateral view of the fluoroscope. After repeat negative aspiration 2 mL of Omnipaque 200 water soluble contrast was injected. Contrast was noted in the epidural space. No contrast was noted into intrathecal or intravascular space. After repeat negative aspiration 6 mL solution was injected intermittently which consists of 5 mL of preservative-free normal saline mixed with 1 mL of 80 mg Depo-Medrol. Needle was withdrawn intact. Skin was cleansed and Band-Aids was applied. DISPOSITION / PLANS: The patient tolerated the procedure well. No complication. The patient was placed in a supine position and transferred to the recovery area in a stable condition for observation. There was no evidence of lower extremity motor or sensory deficit after the procedure. Patient was discharged from the recovery room after meeting discharge criteria. Home discharge instructions were given to the patient by the staff. The patient was reexamined prior to discharge. The patient will schedule a follow up in the clinic in 2-4 weeks.
[2023-05-25 08:43] VITALS: BP 131/78; PULSE 80
--- NOTE | 2023-05-25 19:43 | FL ---
EXAMINATION TYPE: FL guided pain mgmt statistic DATE OF EXAM: 05/25/2023 FLUOROSCOPY Fluoroscopy time of 5 seconds was used during lumbar epidural steroid injection. 2 image/s document/ s the procedure. .77250 mGycm2 DAP
== END 2023-05-25 08:42 | disposition home or self-care (01) ==
LOC: ORPAIN 07:21
PROVIDERS: ATTEND Pain Medicine Interventional Pain Medicine
DX: M51.36 Other intervertebral disc degeneration, lumbar region (principal); M47.816 Spondylosis without myelopathy or radiculopathy, lumbar region; M48.061 Spinal stenosis, lumbar region without neurogenic claudication; Z88.1 Allergy status to other antibiotic agents
CPT/HCPCS: 62323; J1040; Q9966; J2795

== ENCOUNTER → 2023-06-22 | Outpatient (CLI) | payer OTHER ==
[2023-06-22 09:19] VITALS: BP 120/85; PULSE 77; RESP 16; TEMP 98.4
--- NOTE | 2023-06-22 13:40 | P.PAINPG ---
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 Pt states she experienced 85% pain relief x 2-3 wks s/p procedure. Pt states pain level is provoked at 4/10 in intensity, constant, predominantly axial, localized in the lower lumbar spine, sharp in character w occasional shooting pain towards the BLEs. Pain is provoked by lifting, bending, activity. Pain is alleviated by PT x 6 wks in Feb 2023, heat, medications, topical, massages by her best friend at home as needed, hot baths, repositioning and rest. Oswestry axial pain score of 21. Interventional procedures include FELY L4-L5 x2 Medications include Tramadol, Ibu, Neurontin, Cymbalta REVIEW OF ORGAN SYSTEMS: CONSTITUTIONAL: No fevers or chills. No recent weight loss. NEUROLOGICAL: + numbness and tingling along the distal extremities. No seizure disorders or headaches. MUSCULOSKELETAL: + pain PSYCHIATRIC: Denies current depression or suicidal thoughts. Physical Examinations : Constitutional : Cooperative , not in acute distress . Neurologic : Cranial nerve II to XII intact. No focal neurological deficits. Psychiatric : alert & oriented x 3. Matching mood & appropriate affect. Judgment & insight intact. Musculoskeletal : Cervical Spine Motor strength in the deltoid and biceps: Normal right side. Normal Left side Motor strength biceps and the wrist extensors: Normal right side . Normal left side Motor strength in the triceps muscle: Normal right side. Normal left side Deep tendon reflexes: Normal at the biceps. Normal at Brachioradialis. Normal at triceps Vertebral body tenderness to deep palpation over Cervical facet loading test: positive bilaterally Spurling test: positive bilaterally Neck distraction test: positive bilaterally Mariel sign: positive bilaterally Lumbar spine Motor strength lower extremities ,thigh and legs 5/5 Right side , 5/5 Left side Deep tendon reflexes : Normal Knee Jerk. Normal Ankle Jerk Vertebral body tenderness over L4 Savage Test positive over BL L3-L4 Lumbar facet Loading Test: positive Right / positive Left Range of motion of the lumbar spine Flexion 30 degrees, extension 10 degrees Straight Leg Raise test: Left/ Right positive at 35 degrees Tae test: positive right / positive left. Severe tenderness over the Sacroiliac joint on the Right / Left sides Abidalen test: positive bilaterally Seated flexion test: positive bilaterally. Sacral spine : Severe tenderness over the Sacroiliac joint: right side / left side Range of motion: Flexion of the lumbar spine <60 degrees Range of motion: Extension of the lumbar spine <20 degrees Gaenslen's Test positive Amadou's Test positive Tae test: positive right side / left side Thigh Thrust Test Sacral Thrust Test Imaging: MRI noncontrast of the lumbar spine from 10/26/22 reviewed Assessment/ Plan : Lumbar disc bulges, Lumbar DDD Recommendation of FELY L3-L4 #1. May need a series of injections for optimal pain relief. Risks, benefits of procedure discussed and patient verbalized understanding. Protocol for discontinuation/continuation of medications surrounding procedure discussed. All questions answered. I have spent greater than 30 minutes on patient care today. Dr Knight was available by phone for the evaluation of this patient. The time was used to review the medical records including relevant urine studies and Prescription history (MAPs), review of the available imaging, evaluation and examination of the patient, coordination of care with the medical staff and if applicable referring physicians, as well as creation of the medical record PQRS Narrative: Smoking Status Current every day smoker Hx Alcohol Use (MH) No Home Medications: Ambulatory Orders FLUoxetine HCL [PROzac] 20 mg PO DAILY 03/16/21 Losartan [Cozaar] 50 mg PO DAILY 03/16/21 ALPRAZolam [Xanax] 0.5 mg PO TID PRN 05/16/23 Chlorthalidone 25 mg PO DAILY 05/16/23 Gabapentin 300 mg PO TID 05/16/23 amLODIPine [Norvasc] 2.5 mg PO DAILY 05/16/23 busPIRone HCL [Buspar] 30 mg PO DAILY 05/16/23 Controlled Substance Measures - Controlled Substance Measures Is patient prescribed a controlled substance at discharge?: No
== END ==
LOC: PNWHC3 08:27
PROVIDERS: ATTEND Specialist
DX: M51.36 Other intervertebral disc degeneration, lumbar region (principal); M51.26 Other intervertebral disc displacement, lumbar region; F17.200 Nicotine dependence, unspecified, uncomplicated; Z88.0 Allergy status to penicillin
CPT/HCPCS: 99211

== ENCOUNTER 2023-07-06 07:50 | Day surgery (SDC) | payer OTHER ==
[2023-07-06 08:20] VITALS: TEMP 98
[2023-07-06] MEDS ORDERED: LACTATED RINGERS 1,000 ML IV SCH (08:20)
[2023-07-06] MEDS ORDERED: IOPAMIDOL M300 15ML VIAL ONE (08:30)
[2023-07-06] MEDS ORDERED: ROPIVACAINE 5MG/ML 20ML VIAL ONE (08:30)
[2023-07-06] MEDS ORDERED: methylPREDNISolone ACETATE 80 MG/ML 1 ML VIAL ONE (08:30)
--- NOTE | 2023-07-06 08:51 | P.PCN ---
Description of Procedure: PREOPERATIVE DIAGNOSIS: 1- Lumbar Degenerative Disc Diseases 2-Lumbar spondylosis with Facet arthropathy without myelopathy. 3-lumbar spinal stenosis POSTOPERATIVE DIAGNOSIS: 1-lumbar degenerative disc disease. 2-lumbar spondylosis with facet arthropathy without myelopathy. 3-lumbar spinal stenosis. PROCEDURE Injection of radio contrast material into L3-4 interspace, interpretation of epidurogram, injection of steroid at L3-4 epidural space under fluoroscopic guidance. ANESTHESIA: Lidocaine 1% subcutaneously. In OR continuous pulse ox, EKG, blood pressure and verbal communication was maintained with the patient. EBL: Minimal PROCEDURE INDICATION: Before the procedure were discussed with the patient detailed procedure, alternatives, complications including infection, bleeding, nerve damage, paralysis all of which could be permanent. Patient understands and all questions were answered. PROCEDURE DESCRIPTION : After getting consent, patient in OR in prone position. Back was prepped with chlorhexidine and draped in sterile fashion. After injecting 10 mL of 1% lidocaine subcutaneously, a 20-gauge Tuohy needle was introduced at L3-4 interspace with loss of resistance technique using a syringe filled with air. Negative CSF, negative blood, negative paresthesia. Needle position was confirmed with AP and lateral view of the fluoroscope. After repeat negative aspiration 2 mL of Omnipaque 200 water soluble contrast was injected. Contrast was noted in the epidural space. No contrast was noted into intrathecal or intravascular space. After repeat negative aspiration 6 mL solution was injected intermittently which consists of 5 mL of preservative-free normal saline mixed with 1 mL of 80 mg Depo-Medrol. Needle was withdrawn intact. Skin was cleansed and Band-Aids was applied. DISPOSITION / PLANS: The patient tolerated the procedure well. No complication. The patient was placed in a supine position and transferred to the recovery area in a stable condition for observation. There was no evidence of lower extremity motor or sensory deficit after the procedure. Patient was discharged from the recovery room after meeting discharge criteria. Home discharge instructions were given to the patient by the staff. The patient was reexamined prior to discharge. The patient will schedule a follow up in the clinic in 2-4 weeks.
[2023-07-06 08:57] VITALS: BP 124/81; PULSE 79; RESP 18
--- NOTE | 2023-07-06 09:31 | FL ---
Fluoroscopy INDICATION: Pain FINDINGS: Fluoroscopy time: 11.6 seconds. Total dose area product (DAP) in uGy*m?, mGy*cm? (or similar): 0.37303 Images obtained: 3. IMPRESSION: 1. Documentation of fluoroscopy.
== END 2023-07-06 09:03 | disposition home or self-care (01) ==
LOC: ORPAIN 07:50
PROVIDERS: ATTEND Pain Medicine Interventional Pain Medicine
DX: M51.36 Other intervertebral disc degeneration, lumbar region (principal); M47.816 Spondylosis without myelopathy or radiculopathy, lumbar region; M48.061 Spinal stenosis, lumbar region without neurogenic claudication; Z88.1 Allergy status to other antibiotic agents
CPT/HCPCS: 62323; J1040; Q9967; J2795

== ENCOUNTER → 2023-07-27 | Outpatient (CLI) | payer OTHER ==
[2023-07-27 10:04] VITALS: BP 132/85; PULSE 79; RESP 16; TEMP 98.4
--- NOTE | 2023-07-27 14:36 | P.PAINPG ---
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 Pt states she experienced 80 % pain relief x 2-3 wks s/p procedure. Pt states pain level is provoked at 6 /10 in intensity, constant, predominantly axial, localized in the lower lumbar spine, sharp in character w occasional shooting pain towards the BLEs L > R. Pain is provoked by lifting, bending, activity. Pain is alleviated by PT x 6 wks in Feb 2023, heat, medications, topical, massages by her best friend at home as needed, hot baths, repositioning and rest. Oswestry axial pain score of 21. Interventional procedures include FELY L4-L5 x2, FELY L3-L4 x1 Medications include Tramadol, Ibu, Neurontin, Cymbalta REVIEW OF ORGAN SYSTEMS: CONSTITUTIONAL: No fevers or chills. No recent weight loss. NEUROLOGICAL: + numbness and tingling along the distal extremities. No seizure disorders or headaches. MUSCULOSKELETAL: + pain PSYCHIATRIC: Denies current depression or suicidal thoughts. Physical Examinations : Constitutional : Cooperative , not in acute distress . Neurologic : Cranial nerve II to XII intact. No focal neurological deficits. Psychiatric : alert & oriented x 3. Matching mood & appropriate affect. Judgment & insight intact. Musculoskeletal : Cervical Spine Motor strength in the deltoid and biceps: Normal right side. Normal Left side Motor strength biceps and the wrist extensors: Normal right side . Normal left side Motor strength in the triceps muscle: Normal right side. Normal left side Deep tendon reflexes: Normal at the biceps. Normal at Brachioradialis. Normal at triceps Vertebral body tenderness to deep palpation over Cervical facet loading test: positive bilaterally Spurling test: positive bilaterally Neck distraction test: positive bilaterally Mariel sign: positive bilaterally Lumbar spine Motor strength lower extremities ,thigh and legs 5/5 Right side , 5/5 Left side Deep tendon reflexes : Normal Knee Jerk. Normal Ankle Jerk Vertebral body tenderness over L5 Savage Test positive over L L5-S1 Lumbar facet Loading Test: positive Right / positive Left Range of motion of the lumbar spine Flexion 30 degrees, extension 10 degrees Straight Leg Raise test: Left/ Right positive at 35 degrees Tae test: positive right / positive left. Severe tenderness over the Sacroiliac joint on the Right / Left sides Gaenslen test: positive bilaterally Seated flexion test: positive bilaterally. Sacral spine : Severe tenderness over the Sacroiliac joint: right side / left side Range of motion: Flexion of the lumbar spine <60 degrees Range of motion: Extension of the lumbar spine <20 degrees Gaenslen's Test positive Amadou's Test positive Tae test: positive right side / left side Thigh Thrust Test Sacral Thrust Test Imaging: MRI noncontrast of the lumbar spine from 10/26/22 reviewed Assessment/ Plan : Lumbar disc bulges, Lumbar DDD Recommendation of L paramedian FELY L5-S1 #4. May need a series of injections for optimal pain relief. Risks, benefits of procedure discussed and patient verbalized understanding. Protocol for discontinuation/continuation of me dications surrounding procedure discussed. All questions answered. I have spent greater than 30 minutes on patient care today. Dr Knight was available by phone for the evaluation of this patient. The time was used to review the medical records including relevant urine studies and Prescription history (MAPs), review of the available imaging, evaluation and examination of the patient, coordination of care with the medical staff and if applicable referring physicians, as well as creation of the medical record PQRS Narrative: Smoking Status Current every day smoker Hx Alcohol Use (MH) No Home Medications: Ambulatory Orders FLUoxetine HCL [PROzac] 20 mg PO DAILY 03/16/21 Losartan [Cozaar] 50 mg PO DAILY 03/16/21 ALPRAZolam [Xanax] 0.5 mg PO TID PRN 05/16/23 Chlorthalidone 25 mg PO DAILY 05/16/23 Gabapentin 300 mg PO TID 05/16/23 amLODIPine [Norvasc] 2.5 mg PO DAILY 05/16/23 busPIRone HCL [Buspar] 30 mg PO DAILY 05/16/23 Montelukast [Singulair] 10 mg PO DAILY 07/06/23 Controlled Substance Measures - Controlled Substance Measures Is patient prescribed a controlled substance at discharge?: No
== END ==
LOC: PNWHC3 08:31
PROVIDERS: ATTEND Specialist
DX: M51.37 Other intervertebral disc degeneration, lumbosacral region (principal); M51.26 Other intervertebral disc displacement, lumbar region; F17.200 Nicotine dependence, unspecified, uncomplicated; Z88.0 Allergy status to penicillin
CPT/HCPCS: 99211

== ENCOUNTER 2023-08-10 06:21 | Day surgery (SDC) | payer OTHER ==
[2023-08-08 09:12] VITALS: BMI 24.4
[2023-08-10] MEDS ORDERED: LACTATED RINGERS 1,000 ML IV SCH (06:35)
[2023-08-10 07:19] VITALS: TEMP 97.9
[2023-08-10] MEDS ORDERED: methylPREDNISolone ACETATE 80 MG/ML 1 ML VIAL ONE (07:23)
[2023-08-10] MEDS ORDERED: IOPAMIDOL M200 10 ML VIAL ONE (07:23)
--- NOTE | 2023-08-10 07:36 | P.PCN ---
Date of Procedure: 08/10/23 Procedure(s) Performed: PREOPERATIVE DIAGNOSIS: 1- Lumbar Degenerative Disc Diseases 2-Lumbar spondylosis with Facet arthropathy without myelopathy. 3-lumbar spinal stenosis POSTOPERATIVE DIAGNOSIS: 1-lumbar degenerative disc disease. 2-lumbar spondylosis with facet arthropathy without myelopathy. 3-lumbar spinal stenosis. PROCEDURE 1. Lumbar epidural steroid injection under fluoroscopic guidance at the L5-S1 level. (Fluoroscopy imaging was available in radiology department) 2. Lumbar epidurogram. ANESTHESIA: Lidocaine 1% 3 and then only. EBL: Minimal PROCEDURE INDICATION: The patient with low back pain and radiculitis symptoms unresponsive to conservative treatment. Fluoroscopy was used to optimize visualization of the needle placement and to maximize safety. PROCEDURE DESCRIPTION / TECHNIQUE: The patient was seen and identified in the preoperative area. Risks, benefits, complications including but not limited to infections ,bleeding ,allergic reaction to the medications ,nerve damage and not complete pain releife , and alternatives were discussed with the patient. The patient agreed to proceed with the procedure and signed the consent, and vital signs were stable. Patient was taken to the OR and time out was completed. The patient was placed in the prone position on procedure table and a pillow was placed under the abdomen to reduce lumbar lordosis. The lumbosacral area was prepped and draped in the usual sterile fashion.ere closely monitored during the procedure. Vital signs was monitered during the entire procedure. Using anterior-posterior fluoroscopy, the L5-S1 interlaminar space was identified and the skin over this site was marked and then infiltrated with 1% lidocaine subcutaneously. Subsequently, a 20-gauge Tuohy epidural needle was inserted ( left paramedial ) ,and advanced toward the epidural space using the ``Loss of resistance technique and guided by AP and lateral fluoroscopy. The correct needle position in the epidural space was verified with the injection of 2 mL of the water soluble contrast dye Isovue 200 contrast and observing an e xcellent epidurogram with the epidural spread of the dye, after negative aspiration for blood and CSF and in the absence of paresthesias. Again after negative aspiration, a 6 ml mixture containing 80 mg of Depo-medrol ( Preservetive Free ), and 2 ml of preservative free Normal Saline, and 2 ml of preservative free lidocaine 1% solution was injected and a washout of epidurogram was seen. Needle was withdrawn intact, skin was cleansed, and bandages were applied. COMPLICATIONS: None DISPOSITION / PLANS: The patient was placed in a supine position and transferred to the recovery area in a stable condition for observation. There was no evidence of lower extremity motor or sensory deficit after the procedure. Patient was discharged from the recovery room after meeting discharge criteria. Home discharge instructions were given to the patient by the staff. The patient was reexamined prior to discharge. The patient will schedule a follow up in the clinic in 2-4 weeks.
[2023-08-10 07:52] VITALS: BP 118/84; PULSE 73; RESP 16
--- NOTE | 2023-08-10 11:21 | FL ---
EXAMINATION TYPE: FL guided pain mgmt statistic DATE OF EXAM: 08/10/2023 FLUOROSCOPY Fluoroscopy time of 1.5 minutes was used during lumbar epidural steroid injection. 1 image/s documen t/s the procedure. dap 0.23222 mGycm2.
== END 2023-08-10 08:00 | disposition home or self-care (01) ==
LOC: ORPAIN 06:21
PROVIDERS: ATTEND Anesthesiology
DX: M51.16 Intervertebral disc disorders with radiculopathy, lumbar region (principal); M47.26 Other spondylosis with radiculopathy, lumbar region; M48.061 Spinal stenosis, lumbar region without neurogenic claudication; Z88.5 Allergy status to narcotic agent; Z88.0 Allergy status to penicillin
CPT/HCPCS: 62323; J1040; Q9966

== ENCOUNTER → 2023-09-06 | Outpatient (CLI) | payer OTHER ==
[2023-09-06 08:34] VITALS: BP 147/72; PULSE 99; RESP 15; TEMP 98.5
--- NOTE | 2023-09-06 14:23 | P.PAINPG ---
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 Pt states she experienced 90 % pain relief x 2-3 wks s/p procedure. Pt states pain level is provoked at 7 /10 in intensity, intermittent, predominantly axial, localized in the lower lumbar spine, sharp in character w occasional shooting pain towards the BLEs L > R. Pain is provoked by lifting, bending, standing for > 15 min and PT x 6 wks in Feb 2023 which provoked pain. Pain is alleviated by physician guided home stretches since Feb 2023, heat, medications, topical, massages by her best friend at home as needed, hot baths, repositioning and rest. She would like to explore SCS Trial option while she undergoes trials for RFA. Oswestry axial pain score of 21. Interventional procedures include FELY L4-L5 x2, FELY L3-L4 x1, FELY L5-S1 x1 Medications include Tramadol, Ibu, Neurontin, Cymbalta REVIEW OF ORGAN SYSTEMS: CONSTITUTIONAL: No fevers or chills. No recent weight loss. NEUROLOGICAL: + numbness and tingling along the distal extremities. No seizure disorders or headaches. MUSCULOSKELETAL: + pain PSYCHIATRIC: Denies current depression or suicidal thoughts. Physical Examinations : Constitutional : Cooperative , not in acute distress . Neurologic : Cranial nerve II to XII intact. No focal neurological deficits. Psychiatric : alert & oriented x 3. Matching mood & appropriate affect. Judgment & insight intact. Musculoskeletal : Cervical Spine Motor strength in the deltoid and biceps: Normal right side. Normal Left side Motor strength biceps and the wrist extensors: Normal right side . Normal left side Motor strength in the triceps muscle: Normal right side. Normal left side Deep tendon reflexes: Normal at the biceps. Normal at Brachioradialis. Normal at triceps Vertebral body tenderness to deep palpation over Cervical facet loading test: positive bilaterally Spurling test: positive bilaterally Neck distraction test: positive bilaterally Mariel sign: positive bilaterally Lumbar spine Motor strength lower extremities ,thigh and legs 5/5 Right side , 5/5 Left side Deep tendon reflexes : Normal Knee Jerk. Normal Ankle Jerk Vertebral body tenderness Savage Test positive Lumbar facet Loading Test: positive Right / positive Left L4-L5, L5-S1 Range of motion of the lumbar spine Flexion 30 degrees, extension 10 degrees Straight Leg Raise test: Left/ Right positive at 35 degrees Tae test: positive right / positive left. Severe tenderness over the Sacroiliac joint on the Right / Left sides Gaenslen test: positive bilaterally Seated flexion test: positive bilaterally. Sacral spine : Severe tenderness over the Sacroiliac joint: right side / left side Range of motion: Flexion of the lumbar spine <60 degrees Range of motion: Extension of the lumbar spine <20 degrees Gaenslen's Test positive Amadou's Test positive Tae test: positive right side / left side Thigh Thrust Test Sacral Thrust Test Imaging: MRI noncontrast of the lumbar spine from 10/26/22 reviewed Assessment/ Plan : Lumbar disc bulges, Lumbar DDD Recommendation of BL MBB L3-L5 #1. May need a series of injections, up until RFA, for optimal pain relief. Risks, benefits of procedure discussed and patient verbalized understanding. Protocol for discontinuation/continuation of medications surrounding procedure discussed. Minimal anesthesia including Versed and Fentanyl if clinically indicated. Referral to Dr Musa for possible SCS Trial, Script for behavioral health provided. All questions answered. I have spent greater than 30 minutes on patient care today. Dr Knight was available by phone for the evaluation of this patient. The time was used to review the medical records including relevant urine studies and Prescription history (MAPs), review of the available imaging, evaluation and examination of the patient, coordination of care with the medical staff and if applicable referring physicians, as well as creation of the medical record PQRS Narrative: Smoking Status Current every day smoker Hx Alcohol Use (MH) No Home Medications: Ambulatory Orders ALPRAZolam [Xanax] 0.5 mg PO TID PRN 05/16/23 Chlorthalidone 25 mg PO DAILY 05/16/23 Gabapentin 300 mg PO TID 05/16/23 amLODIPine [Norvasc] 2.5 mg PO DAILY 05/16/23 busPIRone HCL [Buspar] 30 mg PO DAILY 05/16/23 Montelukast [Singulair] 10 mg PO DAILY 07/06/23 FLUoxetine HCL [Sarafem] 60 mg PO DAILY 08/08/23 Losartan Potassium 100 mg PO DAILY 08/08/23 Celecoxib [CeleBREX] 1 tab PO DAILY PRN 08/10/23 Controlled Substance Measures - Controlled Substance Measures Is patient prescribed a controlled substance at discharge?: No
== END ==
LOC: PNWHC3 07:29
PROVIDERS: ATTEND Specialist
DX: M51.37 Other intervertebral disc degeneration, lumbosacral region (principal); M51.26 Other intervertebral disc displacement, lumbar region; F17.200 Nicotine dependence, unspecified, uncomplicated; Z88.0 Allergy status to penicillin; Z88.1 Allergy status to other antibiotic agents
CPT/HCPCS: 99211

== ENCOUNTER → 2023-10-18 | Outpatient (CLI) | payer OTHER ==
[2023-10-18 08:04] VITALS: BP 116/72; PULSE 77; RESP 15; TEMP 98.4
--- NOTE | 2023-10-18 14:42 | P.PAINPG ---
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 Pt states pain level is provoked at 7 /10 in intensity, intermittent, predominantly axial, localized in the lower lumbar spine, sharp in character w occasional shooting pain towards the BLEs L > R. Pain is provoked by lifting, bending, standing for > 15 min and PT x 6 wks in Feb 2023 which provoked pain. Pain is alleviated by physician guided home stretches since Feb 2023, heat, medications, topical, massages by her best friend at home as needed, hot baths, repositioning and rest. Oswestry axial pain score of 21. Interventional procedures include FELY L4-L5 x2, FELY L3-L4 x1, FELY L5-S1 x1 Medications include Tramadol, Ibu, Neurontin, Cymbalta REVIEW OF ORGAN SYSTEMS: CONSTITUTIONAL: No fevers or chills. No recent weight loss. NEUROLOGICAL: + numbness and tingling along the distal extremities. No seizure disorders or headaches. MUSCULOSKELETAL: + pain PSYCHIATRIC: Denies current depression or suicidal thoughts. Physical Examinations : Constitutional : Cooperative , not in acute distress . Neurologic : Cranial nerve II to XII intact. No focal neurological deficits. Psychiatric : alert & oriented x 3. Matching mood & appropriate affect. Judgment & insight intact. Musculoskeletal : Cervical Spine Motor strength in the deltoid and biceps: Normal right side. Normal Left side Motor strength biceps and the wrist extensors: Normal right side . Normal left side Motor strength in the triceps muscle: Normal right side. Normal left side Deep tendon reflexes: Normal at the biceps. Normal at Brachioradialis. Normal at triceps Vertebral body tenderness to deep palpation over Cervical facet loading test: positive bilaterally Spurling test: positive bilaterally Neck distraction test: positive bilaterally Mariel sign: positive bilaterally Lumbar spine Motor strength lower extremities ,thigh and legs 5/5 Right side , 5/5 Left side Deep tendon reflexes : Normal Knee Jerk. Normal Ankle Jerk Vertebral body tenderness Savage Test positive Lumbar facet Loading Test: positive Right / positive Left L4-L5, L5-S1 Range of motion of the lumbar spine Flexion 30 degrees, extension 10 degrees Straight Leg Raise test: Left/ Right positive at 35 degrees Tae test: positive right / positive left. Severe tenderness over the Sacroiliac joint on the Right / Left sides Gaenslen test: positive bilaterally Seated flexion test: positive bilaterally. Sacral spine : Severe tenderness over the Sacroiliac joint: right side / left side Range of motion: Flexion of the lumbar spine <60 degrees Range of motion: Extension of the lumbar spine <20 degrees Gaenslen's Test positive Amadou's Test positive Tae test: positive right side / left side Thigh Thrust Test Sacral Thrust Test Imaging: MRI noncontrast of the lumbar spine from 10/26/22 reviewed Assessment/ Plan : Lumbar disc bulges, Lumbar DDD Recommendation of BL MBB L3-L5 #1. May need a series of injections, up until RFA, for optimal pain relief. Risks, benefits of procedure discussed and patient verbalized understanding. Protocol for discontinuation/continuation of medications surrounding procedure discussed. Minimal anesthesia including Versed and Fentanyl if clinically indicated. Referral provided at prior visit to Dr Musa for possible SCS Trial, Script for behavioral health provided. All questions answered. I have spent greater than 30 minutes on patient care today. Dr Knight was available by phone for the evaluation of this patient. The time was used to review the medical records including relevant urine studies and Prescription history (MAPs), review of the available imaging, evaluation and examination of the patient, coordination of care with the medical staff and if applicable referring physicians, as well as creation of the medical record - Pain Location Bilateral Lower Back Non-Pharmacological Interventions: Heat, Ice, Inactivity, Position/Reposition Pharmacological Interventions: Scheduled Medication PQRS Narrative: Smoking Status Current every day smoker Hx Alcohol Use (MH) No Home Medications: Ambulatory Orders ALPRAZolam [Xanax] 0.5 mg PO TID PRN 05/16/23 Chlorthalidone 25 mg PO DAILY 05/16/23 Gabapentin 300 mg PO TID 05/16/23 amLODIPine [Norvasc] 2.5 mg PO DAILY 05/16/23 busPIRone HCL [Buspar] 30 mg PO DAILY 05/16/23 Montelukast [Singulair] 10 mg PO DAILY 07/06/23 FLUoxetine HCL [Sarafem] 60 mg PO DAILY 08/08/23 Losartan Potassium 100 mg PO DAILY 08/08/23 Celecoxib [CeleBREX] 1 tab PO DAILY PRN 08/10/23 Controlled Substance Measures - Controlled Substance Measures Is patient prescribed a controlled substance at discharge?: No
== END ==
LOC: PNWHC3 07:33
PROVIDERS: ATTEND Specialist
DX: M51.36 Other intervertebral disc degeneration, lumbar region (principal); M51.26 Other intervertebral disc displacement, lumbar region; M47.816 Spondylosis without myelopathy or radiculopathy, lumbar region; F17.200 Nicotine dependence, unspecified, uncomplicated; Z88.1 Allergy status to other antibiotic agents; Z88.0 Allergy status to penicillin
CPT/HCPCS: 99211

== ENCOUNTER → 2023-11-14 | Day surgery (SDC) | payer OTHER ==
[~2023-11-14] MED LIST changes: +MIDAZOLAM 2 MG/2 ML VIAL ONE; +ROPIVACAINE 5MG/ML 20ML VIAL ONE
[2023-11-14 06:55] VITALS: TEMP 97.1
[2023-11-14] MEDS: IV FLUID CONTINUATION 1,000 ML IV ONE (07:10)
--- NOTE | 2023-11-14 07:25 | P.PCN ---
Date of Procedure: 11/14/23 Description of Procedure: Procedure: BILATERAL L4-5, L5-S1 #1 Diagnosis: Lumbar spondylosis without myelopathy ANESTHESIA: Patient re-evaluated immediately prior to sedation Medication Administered by: Nurse Sedation Type: Moderate sedation 4mg versed Sedation Supervision start time: 716 Sedation Supervision end time: 722 EBL: Minimal Imaging: Fluoroscopy was used, images where saved to the medical record The patient was seen and examined in the PO. Procedure risks and benefits were fully reviewed with the patient. The patient understands this is diagnostic if local only is used, as will be the case today. The goal of the procedure is to inject medication onto the medial branch or small nerves that innervate the facet joints. In this way, we can hopefully identify which of t hese joints, if any, may be contributing to their pain. Informed consent for procedure was obtained. The patient was taken into the office fluoroscopy procedure room and placed prone on the table. A pillow was placed under the abdomen to reduce lumbar lordosis. Vital signs were closely monitored during the procedure. The skin over the area was prepped with Betadine X 3 and draped in usual sterile manner. Sterile technique was observed throughout procedure. Under biplanar fluoroscopic guidance, the target injection area of the L4, L5, Sacral Ala were targeted. A 25 gauge 3 1/2 inch spinal needle was then placed at the most medial and superior aspect of the transverse process near the "eye of the Ricky dog". Aspiration for blood was negative. 1 cc of 0.5% Ropivacaine was injected into the targeted areas separately. [place] were withdrawn intact. No complications were noted during the procedure. The patient tolerated the procedure well. The patient was placed in supine pos ition and transferred to the recovery area for observation and remained stable until discharged home. Home discharge instructions were given to the patient by the staff. The patient will schedule a follow up as directed.
[2023-11-14] MEDS: IV FLUID CONTINUATION 700 ML IV ONE (07:28)
--- NOTE | 2023-11-14 07:36 | FL ---
Fluoroscopy History: LUMBAR [id number] [id number] DAP DOSE
[2023-11-14 07:51] VITALS: BP 111/76; PULSE 72; RESP 14
== END ==
LOC: ORPAIN 06:17
PROVIDERS: ATTEND Hospitalist
DX: M47.816 Spondylosis without myelopathy or radiculopathy, lumbar region (principal); Z88.0 Allergy status to penicillin; Z88.1 Allergy status to other antibiotic agents
CPT/HCPCS: 64493; 64494 ×2; 99152; J2250; J2795

== ENCOUNTER → 2023-11-30 | Outpatient (CLI) | payer OTHER ==
[2023-11-30 08:44] VITALS: BP 116/75; PULSE 84; RESP 16
--- NOTE | 2023-11-30 14:46 | P.PAINPG ---
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 Pt states she experienced 80 % pain relief x 1 wk s/p procedure. Pt states pain level is provoked at 7 /10 in intensity, intermittent, predominantly axial, localized in the lower lumbar spine, sharp in character w occasional shooting pain towards the BLEs L > R. Pain is provoked by lifting, bending, standing for > 15 min and PT x 6 wks in Feb 2023 which provoked pain. Pain is alleviated by physician guided home stretches since Feb 2023, heat, medications, topical, massages by her best friend at home as needed, hot baths, repositioning and rest. Oswestry axial pain score of 21. Interventional procedures include FELY L4-L5 x2, FELY L3-L4 x1, FELY L5-S1 x1, BL MBB L3-L5 x1 Medications include Tramadol, Ibu, Neurontin, Cymbalta REVIEW OF ORGAN SYSTEMS: CONSTITUTIONAL: No fevers or chills. No recent weight loss. NEUROLOGICAL: + numbness and tingling along the distal extremities. No seizure disorders or headaches. MUSCULOSKELETAL: + pain PSYCHIATRIC: Denies current depression or suicidal thoughts. Physical Examinations : Constitutional : Cooperative , not in acute distress . Neurologic : Cranial nerve II to XII intact. No focal neurological deficits. Psychiatric : alert & oriented x 3. Matching mood & appropriate affect. Judgment & insight intact. Musculoskeletal : Cervical Spine Motor strength in the deltoid and biceps: Normal right side. Normal Left side Motor strength biceps and the wrist extensors: Normal right side . Normal left side Motor strength in the triceps muscle: Normal right side. Normal left side Deep tendon reflexes: Normal at the biceps. Normal at Brachioradialis. Normal at triceps Vertebral body tenderness to deep palpation over Cervical facet loading test: positive bilaterally Spurling test: positive bilaterally Neck distraction test: positive bilaterally Mariel sign: positive bilaterally Lumbar spine Motor strength lower extremities ,thigh and legs 5/5 Right side , 5/5 Left side Deep tendon reflexes : Normal Knee Jerk. Normal Ankle Jerk Vertebral body tenderness Savage Test positive Lumbar facet Loading Test: positive Right / positive Left L4-L5, L5-S1 Range of motion of the lumbar spine Flexion 30 degrees, extension 10 degrees Straight Leg Raise test: Left/ Right positive at 35 degrees Tae test: positive right / positive left. Severe tenderness over the Sacroiliac joint on the Right / Left sides Gaenslen test: positive bilaterally Seated flexion test: positive bilaterally. Sacral spine : Severe tenderness over the Sacroiliac joint: right side / left side Range of motion: Flexion of the lumbar spine <60 degrees Range of motion: Extension of the lumbar spine <20 degrees Gaenslen's Test positive Amadou's Test positive Tae test: positive right side / left side Thigh Thrust Test Sacral Thrust Test Imaging: MRI noncontrast of the lumbar spine from 10/26/22 reviewed Assessment/ Plan : Lumbar disc bulges, Lumbar DDD Recommendation of BL MBB L3-L5 #2. May need a series of injections, up until RFA, for optimal pain relief. Risks, benefits of procedure discussed and patient verbalized understanding. Protocol for discontinuation/continuation of medications surrounding procedure discussed. Minimal anesthesia including Versed and Fentanyl if clinically indicated. All questions answered. I have spent greater than 30 minutes on patient care today. Dr Knight was available by phone for the evaluation of this patient. The time was used to review the medical records including relevant urine studies and Prescription history (MAPs), review of the available imaging, evaluation and examination of the patient, coordination of care with the medical staff and if applicable referring physicians, as well as creation of the medical record PQRS Narrative: Smoking Status Current every day smoker Hx Alcohol Use (MH) No Home Medications: Ambulatory Orders ALPRAZolam [Xanax] 0.5 mg PO TID PRN 05/16/23 Chlorthalidone 25 mg PO DAILY 05/16/23 Gabapentin 300 mg PO TID PRN 05/16/23 amLODIPine [Norvasc] 2.5 mg PO DAILY 05/16/23 busPIRone HCL [Buspar] 30 mg PO DAILY 05/16/23 Montelukast [Singulair] 10 mg PO DAILY 07/06/23 FLUoxetine HCL [Sarafem] 60 mg PO DAILY 08/08/23 Losartan Potassium 100 mg PO DAILY 08/08/23 Celecoxib [CeleBREX] 1 tab PO DAILY PRN 08/10/23 Controlled Substance Measures - Controlled Substance Measures Is patient prescribed a controlled substance at discharge?: No
== END ==
LOC: PNWHC3 08:23
PROVIDERS: ATTEND Specialist
DX: M51.37 Other intervertebral disc degeneration, lumbosacral region (principal); M51.27 Other intervertebral disc displacement, lumbosacral region; F17.200 Nicotine dependence, unspecified, uncomplicated; Z88.0 Allergy status to penicillin; Z88.1 Allergy status to other antibiotic agents
CPT/HCPCS: 99211